=== PATIENT | male | born 1995 | race Caucasian/White ===

== ENCOUNTER 2021-12-29 09:00 | Emergency (ER) | payer BC | END 2021-12-29 11:10 | disposition home or self-care (01) | LOC: ER1 09:00 | DX: S83.91XA Sprain of unspecified site of right knee, initial encounter (principal); I10 Essential (primary) hypertension; X50.9XXA Other and unspecified overexertion or strenuous movements or postures, initial encounter | CPT/HCPCS: 73564; 96372; 99283; J1885 ==